=== PATIENT | female | born 1975 | race Caucasian/White ===

== ENCOUNTER 2021-02-24 10:44 | Emergency (ER) | payer BC, OTHER ==
[~2021-02-24] VITALS: Ht 170.2 cm; Wt 77.1 kg
[2021-02-24 10:48] VITALS: BP 120/77
[2021-02-24] MEDS ORDERED: ZOLOFT 50 MG TA50 MG PO (10:54)
[2021-02-24] MEDS ORDERED: HYDROCHLOROTH12.5 M2 PO (10:54)
[2021-02-24] MEDS ORDERED: ROSUVASTATIN CA10 MG PO (10:54)
[2021-02-24] MEDS ORDERED: URSO FORTE500 MG PO (10:55)
== END 2021-02-24 11:18 | disposition home or self-care (01) ==
LOC: ER 10:44
DX: S99.911A Unspecified injury of right ankle, initial encounter (principal); I10 Essential (primary) hypertension; Z79.899 Other long term (current) drug therapy; X50.1XXA Overexertion from prolonged static or awkward postures, initial encounter; Y93.89 Activity, other specified; Y92.22 Religious institution as the place of occurrence of the external cause; Y99.8 Other external cause status

== ENCOUNTER 2021-05-25 18:01 | Emergency (ER) | payer BC, OTHER ==
[~2021-05-25] VITALS: Ht 170.2 cm; Wt 76.2 kg
[~2021-05-25 18:01] MED LIST: HYDROCHLOROTH12.5 M2 PO; ROSUVASTATIN CA10 MG PO; URSO FORTE500 MG PO; ZOLOFT 50 MG TA50 MG PO
[2021-05-25 18:36] VITALS: BP 142/93
[2021-05-25 18:57] LABS: URINE BILIRUBIN NEGATIVE (Negative); URINE BLOOD NEGATIVE (Negative); URINE CLARITY CLEAR; URINE COLOR YELLOW; URINE GLUCOSE-RANDOM* NEGATIVE (Negative); URINE KETONES NEGATIVE (Negative); URINE LEUKOCYTES-REFLEX NEGATIVE (Negative); URINE NITRITE-REFLEX NEGATIVE (Negative); URINE PROTEIN (DIPSTICK) NEGATIVE (Negative); URINE SPECIFIC GRAVITY >= 1.030 (1.005-1.035); URINE UROBILINOGEN 0.2 E.U./dl (0.2-1.0)
[2021-05-25] MEDS ORDERED: BACTRIM DS TAB1 EACH PO (19:19)
== END 2021-05-25 19:40 | disposition home or self-care (01) ==
LOC: ER 18:01
PROVIDERS: Nurse Practitioner
DX: R30.0 Dysuria (principal); I10 Essential (primary) hypertension; Z79.899 Other long term (current) drug therapy